=== PATIENT | female | born 1960 | race African-American/Black ===

== ENCOUNTER 2016-08-22 22:44 | Emergency (ER) | payer OTHER ==
[~2016-08-22] VITALS: Ht 170.2 cm; Wt 93.9 kg
[~2016-08-22 22:44] MED LIST: TYLENOL #31 TAB PO
--- NOTE | 2016-08-22 22:57 | ED SKIN/ALLERGY COMPLAINT ---
History of Present Illness General Chief Complaint: Allergy Symptoms Stated Complaint: SWELLING OF THE LIPS Source: patient Exam Limitations: no limitations Vital Signs & Intake/Output Vital Signs & Intake/Output Vital Signs Date Time Temp Pulse Resp B/P B/P Pulse O2 O2 Flow FiO2 Mean Ox Delivery Rate 08/23 0518 98.0 77 18 158/106 98 Room Air 08/22 2306 98.2 60 18 160/102 97 Room Air ED Intake and Output 08/23 0000 08/22 1200 Intake Total Output Total Balance Patient 207 lb Weight Weight Reported by Patient Measurement Method Allergies Coded Allergies: Sulfa (Sulfonamide Antibiotics) (Severe, HIVES 08/22/16) Reconcile Medications Lisinopril 5 MG TABLET 1 TAB PO DAILY HTN (Reported) Triage Nurses Notes Reviewed? yes Onset: Gradual Duration: hour(s): Timing: single episode today Severity: moderate Location: lower lip Possible Factors: lisinopril No Modifying Factors: none Associated Symptoms: lower lip swelling HPI: 56 yo woman, h/o hypertension, on lisinopril, presents with swelling of her lower lip for the past 4-5 hours. She shares that her swelling began shortly after dinner. "It was swollen a little bit... and then it just started swelling right up." She notes no tongue swelling, dyspnea, wheezing, chills, chest pain, fever. She has been taking lisinopril for the past 2 months. She notes that she has no food allergies. She is otherwise well. Past History Travel History Traveled to [place] past 21 day No Medical History Any Pertinent Medical History? see below for history Cardiovascular: hypertension Surgical History Surgical History: none Psychosocial History What is your primary language Cypriot Family History Hx Contributory? No Review of Systems Review of Systems Constitutional: Reports: no symptoms. EENTM: Reports: no symptoms. Respiratory: Reports: no symptoms. Cardiovascular: Reports: no symptoms. GI: Reports: no symptoms. Genitourinary: Reports: no symptoms. Musculoskeletal: Reports: no symptoms. Skin: Reports: no symptoms. Neurological/Psychological: Reports: no symptoms. Hematologic/Endocrine: Reports: no symptoms. Immunologic/Allergic: Reports: no symptoms. All Other Systems: Reviewed and Negative Physical Exam Physical Exam General Appearance: well developed/nourished, mild distress Head: atraumatic Eyes: Bilateral: normal appearance. Ears, Nose, Throat: hearing grossly normal, lower lip with marked angioedema. tongue is normal. Neck: normal inspection, supple Respiratory: normal breath sounds Cardiovascular: regular rate/rhythm Gastrointestinal: soft, non-tender Back: normal inspection Extremities: normal inspection, normal range of motion, no edema Neurologic/Psych: awake, alert, oriented x 3, normal mood/affect Lymphatic: no anterior cervical gisel Progress Differential Diagnosis: anaphylaxis, angioedema, asthma, drug reaction Plan of Care: pt given benadryl and solumedrol upon arrival. pt monitored in the ED x several hours. pt counseled to take stop lisinopril. Departure Departure Disposition: HOME OR SELF CARE Condition: Stable Clinical Impression Primary Impression: Angioedema Referrals: PATIENT HAS NO PRIMARY CARE DR (PCP/Family) Departure Forms: Customer Survey General Discharge Information Comments 08/23/16, 5am.... mild improvement in ED after 6 hours of ED observation. No progression. Pt feels well and has no trouble breathing or other issues. She is safe for discharge.
[2016-08-23] MEDS ORDERED: LISINOPRIL5 M1 PO (01:00)
[2016-08-23 05:18] VITALS: BP 158/106
== END 2016-08-23 05:19 ==
LOC: ERH 22:44
DX: T78.3XXA Angioneurotic edema, initial encounter (principal)
CPT/HCPCS: 96374; 96375; J1200; J2930